=== PATIENT | male | born 1945 | race Hispanic/Latino ===

== ENCOUNTER → 2020-03-20 | Outpatient (CLI) | payer OTHER ==
[~2020-03-20] MED LIST: COVID-19 VACC, MRNA(MODERNA)/PF 100 MCG/0.5 ML VIAL IM ONE
== END ==
LOC: VACCPMC 19:30
DX: Z23 Encounter for immunization (principal); Z20.822 Contact with and (suspected) exposure to COVID-19

== ENCOUNTER → 2020-04-23 | Outpatient (CLI) | payer OTHER | END | DRG 951 | LOC: VACCPMC 09:26 | DX: Z23 Encounter for immunization (principal); Z20.822 Contact with and (suspected) exposure to COVID-19 | CPT/HCPCS: 0012A; 91301 ==

== ENCOUNTER 2024-03-12 08:31 | Emergency (ER) | payer MEDICARE ==
[~2024-03-12] VITALS: Ht 172.7 cm; Wt 74.8 kg
[2024-03-12 08:35] VITALS: PULSE 72; RESP 18; TEMP 97.9
[2024-03-12 08:50] LABS: BASOPHILS % 0.1 % (0.0-1.0); EOSINOPHILS # (AUTO) 0.1 (0.0-0.4); EOSINOPHILS % 1.2 % (0.0-6.0); HEMATOCRIT 32.1 % (38.2-49.6); HEMOGLOBIN 9.9 g/dL (14.0-18.0); LYMPHOCYTES # (AUTO) 1.3 (1.0-3.2); LYMPHOCYTES % 12.5 % (18.0-39.1); MEAN CORPUSCULAR HGB CONC 30.8 g/dL (31-35); MEAN CORPUSCULAR VOLUME 103.9 fL (81-99); MONOCYTES # (AUTO) 0.6 (0.2-0.8); NEUTROPHILS % 79.8 % (38.7-80.0); PLATELET COUNT 197 x10e3/uL (140-360); RED BLOOD COUNT 3.09 x10e6/uL (4.3-5.7); RED CELL DISTRIBUTION WIDTH 13.2 % (11.7-14.4); WHITE BLOOD COUNT 10.03 x10e3/uL (4.8-10.8)
[2024-03-12 09:13] LABS: ANION GAP 18.8 mmol/L (8-16); CREATININE, SERUM 11.23 mg/dL (0.72-1.25); POTASSIUM 4.8 mmol/L (3.5-5.1)
[2024-03-12] MEDS: BELLADONNA ALK/PHENOBARBITAL 5 ML UDC PO STA (09:13)
[2024-03-12] MEDS: LIDOCAINE VISC 2% SOLN 15 ML UDC PO ONE (09:13)
[2024-03-12 09:14] LABS: ALBUMIN 3.7 g/dL (3.5-5.0); ALBUMIN/GLOBULIN RATIO 1.1 (0.8-2.0); BILIRUBIN,TOTAL 0.6 mg/dL (0.2-1.2); CALCIUM 8.7 mg/dL (8.4-10.2); TOTAL PROTEIN 7.1 g/dL (6.5-8.1)
[2024-03-12] MEDS: MAGNESIUM/ALUMINUM/SIMETHICONE 30 ML UDC PO ONE (09:14)
[2024-03-12 09:19] LABS: TROPONIN I 0.033 ng/mL (0-0.300)
[2024-03-12] MEDS ORDERED: OMEPRAZOLE40 MG PO (09:24)
[2024-03-12] MEDS ORDERED: ONDANSETRON ODT4 MG PO (09:24)
[2024-03-12 10:38] VITALS: BP 128/82; PULSE 84; RESP 18; TEMP 98.2; O2SAT 99
== END 2024-03-12 10:40 | disposition home or self-care (01) ==
LOC: ER 08:37
DX: R07.89 Other chest pain (principal); K20.80 Other esophagitis without bleeding; N18.6 End stage renal disease; Z99.2 Dependence on renal dialysis; Z85.038 Personal history of other malignant neoplasm of large intestine
CPT/HCPCS: 36415; 71045; 80053; 84484; 85025; 93005; 99284; J2470